=== PATIENT | female | born 1995 | race Caucasian/White ===

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

== ENCOUNTER 2017-10-30 21:02 | Emergency (ER) | payer OTHER ==
[2017-10-30 21:14] VITALS: BP 121/81; TEMP 98.7; BMI 19.3
--- NOTE | 2017-10-30 22:42 | CT ---
EXAM: CTA thorax HISTORY: Chest pain shortness of breath COMPARISON: CTA thorax 06/27/2017 FINDINGS: Contiguous axial images obtained through the thorax following the administration intraveno us contrast utilizing 3-mm collimation. Sagittal and coronal reconstructions were imaged and reviewe d.. Source images were utilized to create rotating 3-D MIP images The thoracic inlet is unremarkabl e. There is no evidence of hilar or mediastinal lymphadenopathy. The cardiac silhouette is normal i n size without pericardial effusion. There is no evidence of pulmonary embolus. The lungs are clear bilaterally . Bone windows eveals no evidence of lytic or blastic lesions. IMPRESSION: No evidence of pulmonary embolus or acute intrathoracic findings.
[2017-10-30] MEDS ORDERED: DUONEB NEB STA (22:44)
--- NOTE | 2017-10-30 22:48 | ED.PDOC ---
General ED Provider: Dr. HAYLEY BRADY-ER Chief Complaint: Shortness of Air Stated Complaint: my chest feels tight like i cant take a deep breathe Time Seen by Physician: 21:05 Mode of Arrival: Walk-In Information Source: Patient Exam Limitations: No limitations Primary Care Provider: ANNITA HINOJOSA Nursing and Triage Documentation Reviewed and Agree: Yes Reviewed sepsis parameters & appropriate labs ordered?: Yes System Inflammatory Response Syndrome: Not Applicable Sepsis Protocol: For patient's 13 years and over: Temp is 96.8 and below OR 101 and greater Pulse >90 BPM Resp >20/minute Acutely Altered Mental Status Are patient's symptoms suggestive of a new infection, such as: -Pneumonia -Skin, Soft Tissue -Endocarditis -UTI -Bone, Joint Infection -Implantable Device -Acute Abdominal Infection -Wound Infection -Meningitis -Blood Stream Catheter Infection -Unknown Respiratory Complaint Exam - Respiratory Complaint/Exam Onset/Duration: 24hrs Symptoms Are: Still present Timing: Intermittent Initial Severity: Mild Current Severity: Mild Location: Chest Character: Reports: Non-productive cough Alleviating: Reports: None. Denies: Nasal suction Associated Signs and Symptoms: Reports: Pleuritic chest pain. Denies: Rapid breathing, Dyspnea, Chills, Chest pain, Wheezing, Hemoptysis, Dizziness, Calf pain, Calf swelling, Edema Recent Stress Test: No Recent Echo/LV Function: No Current Antibiotic Use: No Current Asthma Medication Use: No Respiratory Distress: None Inadequate Respiratory Effort: No Dysphagia Present: No Stridor Present: No Accessory Muscle Use: No Retractions: Not Present Diminished Breath Sounds: No Grunting Respirations: No Kussmaul Respirations: No Differential Diagnoses: Asthma, Pneumonia, Pulmonary Embolism, Bronchitis Non-Traumatic Chest Pain Syncope: EKG Performed Review of Systems - Review Of Systems Constitutional: Reports: No symptoms Eyes: Reports: No symptoms Ears, Nose, Mouth, Throat: Reports: No symptoms Respiratory: Reports: Short of air Cardiac: Reports: Chest pain GI: Reports: No symptoms : Reports: No symptoms Musculoskeletal: Reports: No symptoms Skin: Reports: No symptoms Neurological: Reports: No symptoms Endocrine: Reports: No symptoms Hematologic/Lymphatic: Reports: No symptoms All Other Systems: Reviewed and Negative Past Medical History - Past Medical History Previously Healthy: Yes Endocrine: Reports: None Cardiovascular: Reports: None Respiratory: Reports: None Hematological: Reports: None Gastrointestinal: Reports: None Genitourinary: Reports: None Neuro/Psych: Reports: Anxiety, Depression Musculoskeletal: Reports: Other Cancer: Reports: None Last Menstrual Period: 3 weeks ago - Surgical History General Surgical History: Reports: (1 months ago ), Cholecystectomy ( Gallbladder removal 01/21/15 ) - Family History Family History: Reports: Unknown - Social History Smoking Status: Current every day smoker, Light tobacco smoker Hx Substance Use: No Alcohol Screening: None - Immunizations Tetanus Shot up to Date: Yes Physical Exam - Physical Exam Appearance: Well-appearing, No pain distress, Well-nourished Eyes: CHRISTELLE, EOMI, Conjunctiva clear ENT: Ears normal, Nose normal, Oropharynx normal Neck: Supple Respiratory: Airway patent, Breath sounds clear, Breath sounds equal, Respirations nonlabored Cardiovascular: RRR, Pulses normal, No rub, No murmur GI/: Soft, Nontender, No masses, Bowel sounds normal, No Organomegaly Musculoskeletal: Normal strength Skin: Warm Neurological: Sensation intact Psychiatric: Affect appropriate, Mood appropriate Interpretation - Radiology Interpretation Radiology Interpretation By: Radiologist Radiology Results: Negative Exam Interpreted: CT Scan - EKG Interpretation Time of EKG #1: 22:48 Rate: Normal Rhythm: Sinus Ectopy: None [place]: NL ST Segment: Normal Interpretation: normal sinus rythym Re-Evaluation - Re-Evaluation Time of Re-Evaluation: 23:02 Status: Improved Vital Signs Stable: Yes Pain Level: 0 Appearance: NAD Lungs: Clear Skin: Warm and Dry Neuro: Alert and Oriented X3 CV: RRR Critical Care Note - Critical Care Note Total Time (mins): 0 Course - Course Hematology/Chemistry: 10/30/17 21:25 10/30/17 21:25 Orders, Labs, Meds: Lab Review 10/30/17 10/30/17 10/30/17 21:17 21:25 21:25 WBC 7.87 RBC 4.61 Hgb 13.5 Hct 38.5 MCV 83.5 MCH 29.3 MCHC 35.1 RDW Coeff of Nay 13.0 Plt Count 278 Immature Gran % (Auto) 0.3 Neut % (Auto) 63.8 Lymph % (Auto) 30.2 [place] % (Auto) 4.6 Eos % (Auto) 0.5 Baso % (Auto) 0.6 Immature Gran # (Auto) 0.0 Neut # (Auto) 5.0 Lymph # (Auto) 2.4 [place] # (Auto) 0.4 Eos # (Auto) 0.0 Baso # (Auto) 0.1 Puncture Site Lr O2 Saturation 98.0 ABG pH 7.442 ABG pCO2 36.7 ABG pO2 95.0 ABG HCO3 25.1 ABG Total CO2 26 ABG Base Excess 1 Noel Test + FiO2 % 21.0 Sodium 139 Potassium 3.7 Chloride 103 Carbon Dioxide 25 Anion Gap 14.7 BUN 11 Creatinine 0.70 Estimated GFR (MDRD) 107.00 BUN/Creatinine Ratio 15.71 Glucose 109 Calcium 8.7 Total Bilirubin 0.2 AST 19 ALT 16 Alkaline Phosphatase 71 Total Protein 7.1 Albumin 4.5 Globulin 2.6 Albumin/Globulin Ratio 1.73 Serum , Qual 10/30/17 21:25 WBC RBC Hgb Hct MCV MCH MCHC RDW Coeff of Nay Plt Count Immature Gran % (Auto) Neut % (Auto) Lymph % (Auto) [place] % (Auto) Eos % (Auto) Baso % (Auto) Immature Gran # (Auto) Neut # (Auto) Lymph # (Auto) [place] # (Auto) Eos # (Auto) Baso # (Auto) Puncture Site O2 Saturation ABG pH ABG pCO2 ABG pO2 ABG HCO3 ABG Total CO2 ABG Base Excess Noel Test FiO2 % Sodium Potassium Chloride Carbon Dioxide Anion Gap BUN Creatinine Estimated GFR (MDRD) BUN/Creatinine Ratio Glucose Calcium Total Bilirubin AST ALT Alkaline Phosphatase Total Protein Albumin Globulin Albumin/Globulin Ratio Serum , Qual Negative Orders Category Date Time Status ABG DRAW REQUEST Stat CARDIO 10/30/17 21:18 Completed EKG-(ED ONLY) Stat CARDIO 10/30/17 21:18 Completed NEBULIZER TREATMENT Stat CARDIO 10/30/17 22:44 Ordered NPO REMINDER: IMAGING ONCE CARE 10/30/17 21:18 Completed ED IV/MEDIPORT/POWERPORT .ONCE EMERGENCY 10/30/17 21:18 Active ABG Stat LAB 10/30/17 21:17 Completed CBC W/ AUTO DIFF Stat LAB 10/30/17 21:25 Completed COMPREHENSIVE METABOLIC PANEL Stat LAB 10/30/17 21:25 Completed SERUM TEST [SERUM ] Stat LAB 10/30/17 21:25 Completed 0.9 % Sodium Chloride [Saline Flush] MEDS 10/30/17 21:18 Ordered 1 syr IVF PRN PRN Ipratropium/Albuterol Neb [Duoneb] MEDS 10/30/17 22:44 Discontinued 1 vial NEB ONCE STA CT CHEST PE PROTOCOL Stat RADS 10/30/17 21:18 Completed Medications Generic Name Dose Route Start Last Admin Trade Name Freq PRN Reason Stop Dose Admin Sodium Chloride 1 syr 10/30/17 21:18 Saline Flush IVF PRN PRN To flush IV Discontinued Medications Generic Name Dose Route Start Last Admin Trade Name Freq PRN Reason Stop Dose Admin Albuterol/Ipratropium 1 vial 10/30/17 22:44 Duoneb NEB 10/30/17 22:45 ONCE STA Vital Signs: Temp Pulse Resp BP Pulse Ox 10/30/17 21:03 98.7 F 108 H 20 121/81 98 Departure - Departure Time of Disposition: 23:02 Disposition: HOME SELF-CARE Discharge Problem: Bronchitis Instructions: Acute Bronchitis (ED) Condition: Good Pt referred to PMD for follow-up: Yes IPMP verified?: No Additional Instructions: proair inhaler 2 puffs qid prn--f/u with pcp Allergies/Adverse Reactions: Allergies Penicillins Adverse Reaction (Verified 10/30/17 21:10) Rash Home Medications: Ambulatory Orders 1 [No Reported Medications] 11/11/16 Disposition Discussed With: Patient, Family
== END 2017-10-30 23:10 | disposition home or self-care (01) ==
LOC: ED 21:02
DX: J20.9 Acute bronchitis, unspecified (principal); F17.210 Nicotine dependence, cigarettes, uncomplicated
CPT/HCPCS: 36415; 80053; 82803; 84703; 85025; 93005; 93010; 94640; 99283

== ENCOUNTER 2017-12-08 01:03 | Emergency (ER) ==
[2017-12-08 01:16] VITALS: BP 116/75; TEMP 98.6; BMI 19.1
[2017-12-08] MEDS ORDERED: CLEOCIN PO STA (01:22)
--- NOTE | 2017-12-08 01:25 | ED.PDOC ---
General ED Provider: Dr. MELI HILOTN Chief Complaint: Non-specific Complaint Stated Complaint: came for the right Jaw swelling, She had dental filling done 1 day ago,. today she is hurting more not able to open mouth. Time Seen by Physician: 01:23 Mode of Arrival: Walk-In Information Source: Patient Primary Care Provider: MATY SUAZO Nursing and Triage Documentation Reviewed and Agree: Yes Reviewed sepsis parameters & appropriate labs ordered?: Yes System Inflammatory Response Syndrome: Not Applicable Sepsis Protocol: For patient's 13 years and over: Temp is 96.8 and below OR 101 and greater Pulse >90 BPM Resp >20/minute Acutely Altered Mental Status Are patient's symptoms suggestive of a new infection, such as: -Pneumonia -Skin, Soft Tissue -Endocarditis -UTI -Bone, Joint Infection -Implantable Device -Acute Abdominal Infection -Wound Infection -Meningitis -Blood Stream Catheter Infection -Unknown EENT Complaint Exam - Dental/Oral Complaint/Exam Symptoms Are: Still present Timing: Constant Initial Severity: Moderate Current Severity: Moderate Character: Reports: Dull, Aching Aggravating: Reports: Chewing Alleviating: Reports: None Associated Signs and Symptoms: Reports: Swelling, Foul odor. Denies: Discharge , Fever, Foul taste in mouth Cardiac Risk Factors: Reports: None Dental/Oral Surgical History: Reports: Periodontal Surgery (tooth filling) Tooth Findings: Present: Percussion tenderness, Abcess Facial Swelling Present: Yes Bleeding Present: No Septal Hematoma: No Foreign Body Present: No Dysphagia Present: No Drooling Present: No Asymmetrical Tonsillar Swelling Present: No Uvula Midline: Yes Hanh-tonsillar Fluctuence: No Trismus Present: No Palatal Petechiae Present: No Differential Diagnoses: Dental Abcess, Dental Caries, Mandibular Trauma Review of Systems - Review Of Systems Constitutional: Reports: No symptoms Eyes: Reports: No symptoms Ears, Nose, Mouth, Throat: Reports: Mouth pain Respiratory: Reports: No symptoms Cardiac: Reports: No symptoms GI: Reports: No symptoms : Reports: No symptoms Musculoskeletal: Reports: No symptoms Skin: Reports: No symptoms Neurological: Reports: No symptoms Endocrine: Reports: No symptoms Hematologic/Lymphatic: Reports: No symptoms All Other Systems: Reviewed and Negative Past Medical History - Past Medical History Previously Healthy: Yes Endocrine: Reports: None Cardiovascular: Reports: None Respiratory: Reports: None Hematological: Reports: None Gastrointestinal: Reports: None Genitourinary: Reports: None Neuro/Psych: Reports: Anxiety, Depression Musculoskeletal: Reports: Other Cancer: Reports: None Last Menstrual Period: 1 week ago - Surgical History General Surgical History: Reports: (1 months ago ), Cholecystectomy ( Gallbladder removal 01/21/15 ) - Family History Family History: Reports: Unknown - Social History Smoking Status: Current every day smoker, Light tobacco smoker Smoking Cessation Counseling Time: > 10 min Hx Substance Use: No Alcohol Screening: None - Immunizations Tetanus Shot up to Date: Yes Physical Exam - Physical Exam Appearance: Well-appearing (rt jaw swollen), Well-nourished Pain Distress: Mild Eyes: CHRISTELLE, EOMI, Conjunctiva clear ENT: Ears normal, Nose normal, Oropharynx normal Respiratory: Airway patent, Breath sounds clear, Breath sounds equal, Respirations nonlabored Cardiovascular: RRR, Pulses normal, No rub, No murmur GI/: Soft, Nontender, No masses, Bowel sounds normal, No Organomegaly Musculoskeletal: Normal strength, ROM intact, No edema, No calf tenderness Skin: Warm, Dry, Normal color Neurological: Sensation intact, Motor intact, Reflexes intact, Cranial nerves intact, Alert, Oriented Psychiatric: Affect appropriate, Mood appropriate Critical Care Note - Critical Care Note Total Time (mins): 20 Course - Course Orders, Labs, Meds: Orders Category Date Time Status SERUM Stat LAB 12/08/17 Ordered Clindamycin HCl [Cleocin] MEDS 12/08/17 01:22 Stat 300 mg PO ONCE STA CT MAXILLOFACIAL W/O CONTRAST Stat RADS 12/08/17 01:22 Ordered Medications Discontinued Medications Generic Name Dose Route Start Last Admin Trade Name Norma PRN Reason Stop Dose Admin Clindamycin HCl 300 mg 12/08/17 01:22 Cleocin PO 12/08/17 01:23 ONCE STA Vital Signs: Temp Pulse Resp BP Pulse Ox 12/08/17 01:07 98.6 F 77 20 116/75 98 Departure - Departure Time of Disposition: 01:27 Disposition: HOME SELF-CARE Discharge Problem: Dental abscess Instructions: Dental Abscess (ED) Condition: Stable Pt referred to PMD for follow-up: Yes IPMP verified?: No Additional Instructions: Keep f/u with dentist Take antibiotics with food Prescriptions: Clindamycin HCl 300 mg PO TID #15 capsule Allergies/Adverse Reactions: Allergies Penicillins Adverse Reaction (Verified 12/08/17 01:16) Rash Home Medications: Ambulatory Orders Clindamycin HCl 300 mg PO TID #15 capsule 12/08/17 Disposition Discussed With: Patient
[2017-12-08] MEDS ORDERED: TYLENOL PO STA (02:26)
--- NOTE | 2017-12-08 02:36 | CT ---
EXAM: CT of the face and orbits without contrast. HISTORY: Right jaw pain, after the procedure. PROCEDURE: Contiguous axial CT images of the face and orbits without contrast with coronal and sagit raysa reformats. FINDINGS: The bones are intact with no evidence of fracture. The temporomandibular joints are maint ained. The orbits are normal in appearance. The paranasal sinuses are well-aerated and normal in ap pearance. There is minimal soft tissue swelling and inflammatory stranding of the subcutaneous fat a long the lateral margin of the right mandible. No discrete fluid collection. There is jewelry in the left nasal soft tissues. Impression: Minimal soft tissue swelling and inflammatory stranding of the subcutaneous fat along the lateral margin of the right mandible. Correlate with history.
== END 2017-12-08 02:50 | disposition home or self-care (01) ==
LOC: ED 01:03
DX: K04.7 Periapical abscess without sinus (principal); F17.210 Nicotine dependence, cigarettes, uncomplicated
CPT/HCPCS: 36415; 84703; 99282

== ENCOUNTER 2018-08-15 21:38 | Emergency (ER) ==
[2018-08-15 21:49] VITALS: BP 126/80; TEMP 99.2; BMI 18.7
[2018-08-15 22:03] LABS: URINE PREGNANCY TEST NEGATIVE (NEGATIVE)
[2018-08-15] MEDS ORDERED: SODIUM CHLORIDE 1,000 ML IV STA ×2 (22:13)
--- NOTE | 2018-08-15 23:27 | ED.PDOC ---
General ED Provider: Dr. HAYLEY BRADY-ER Chief Complaint: Diarrhea Stated Complaint: erick had loose stools Time Seen by Physician: 23:25 Mode of Arrival: Walk-In Information Source: Patient Exam Limitations: No limitations Primary Care Provider: MATY SUAZO Nursing and Triage Documentation Reviewed and Agree: Yes Does patient meet sepsis criteria?: No System Inflammatory Response Syndrome: Not Applicable Sepsis Protocol: For patient's 13 years and over: Temp is 96.8 and below OR 101 and greater Pulse >90 BPM Resp >20/minute Acutely Altered Mental Status Are patient's symptoms suggestive of a new infection, such as: -Pneumonia -Skin, Soft Tissue -Endocarditis -UTI -Bone, Joint Infection -Implantable Device -Acute Abdominal Infection -Wound Infection -Meningitis -Blood Stream Catheter Infection -Unknown GI Complaint Exam - Vomiting/Diarrhea Complaint/Exam Onset/Duration: a few days Symptoms Are: Still present Initial Severity: Mild Current Severity: Mild Character of Vomiting: Reports: Non-bilious Character of Diarrhea: Reports: Watery Aggravating: Reports: None Alleviating: Reports: None Associated Signs and Symptoms: Denies: Dizziness, Light-headedness, Melena, Hematemesis, Fever, Abdominal pain, Cramping Recent Positive Test: No Use of Oral Contraceptives: No Use of Depoprovera: No Compliant With Contraceptive Use: No Non-GI Risk Factors: Reports: None Surgical Obstruction Risk Factors: Reports: None Related Surgical History: Reports: None Abdominal Findings: Present: None Kussmaul Respirations Present: No Differential Diagnoses: Dehydration, Viral Gastroenteritis Review of Systems - Review Of Systems Constitutional: Reports: No symptoms Eyes: Reports: No symptoms Ears, Nose, Mouth, Throat: Reports: No symptoms Respiratory: Reports: No symptoms Cardiac: Reports: No symptoms GI: Reports: Diarrhea : Reports: No symptoms Musculoskeletal: Reports: No symptoms Skin: Reports: No symptoms Neurological: Reports: No symptoms Endocrine: Reports: No symptoms Hematologic/Lymphatic: Reports: No symptoms All Other Systems: Reviewed and Negative Past Medical History - Past Medical History Previously Healthy: Yes Endocrine: Reports: None Cardiovascular: Reports: None Respiratory: Reports: None Hematological: Reports: None Gastrointestinal: Reports: None Genitourinary: Reports: None Neuro/Psych: Reports: Anxiety, Depression Musculoskeletal: Reports: Other Cancer: Reports: None Last Menstrual Period: unknown - Surgical History General Surgical History: Reports: (1 months ago ), Cholecystectomy ( Gallbladder removal 01/21/15 ) - Family History Family History: Reports: Unknown - Social History Smoking Status: Current every day smoker, Light tobacco smoker Hx Substance Use: No Alcohol Screening: None - Immunizations Tetanus Shot up to Date: Yes Physical Exam - Physical Exam Appearance: Well-appearing, No pain distress, Well-nourished Eyes: CHRISTELLE, EOMI, Conjunctiva clear ENT: Ears normal, Nose normal, Oropharynx normal Neck: Supple Respiratory: Airway patent, Breath sounds clear, Breath sounds equal, Respirations nonlabored Cardiovascular: RRR, Pulses normal, No rub, No murmur GI/: Soft Musculoskeletal: Normal strength, ROM intact, No edema, No calf tenderness Skin: Warm, Dry, Normal color Neurological: Sensation intact, Motor intact, Reflexes intact, Cranial nerves intact, Alert, Oriented Psychiatric: Affect appropriate, Mood appropriate Critical Care Note - Critical Care Note Total Time (mins): 0 Course - Course Hematology/Chemistry: 08/15/18 22:22 08/15/18 22:22 Orders, Labs, Meds: Lab Review 08/15/18 08/15/18 08/15/18 21:59 21:59 22:22 WBC 6.02 RBC 4.46 Hgb 12.9 Hct 37.8 MCV 84.8 MCH 28.9 MCHC 34.1 RDW Coeff of Nay 12.3 Plt Count 281 Immature Gran % (Auto) 0.2 Neut % (Auto) 53.0 Lymph % (Auto) 39.0 Esmeralda % (Auto) 5.8 Eos % (Auto) 1.3 Baso % (Auto) 0.7 Immature Gran # (Auto) 0.0 Neut # (Auto) 3.2 Lymph # (Auto) 2.4 Esmeralda # (Auto) 0.4 Eos # (Auto) 0.1 Baso # (Auto) 0.0 Sodium Potassium Chloride Carbon Dioxide Anion Gap BUN Creatinine Estimated GFR (MDRD) BUN/Creatinine Ratio Glucose Calcium Total Bilirubin AST ALT Alkaline Phosphatase Total Protein Albumin Globulin Albumin/Globulin Ratio Amylase Lipase Urine Color Yellow Urine Clarity Clear Urine pH 7.5 Ur Specific [place] 1.010 Urine Protein Negative Urine Glucose (UA) Negative Urine Ketones Negative Urine Blood Negative Urine Nitrite Negative Urine Bilirubin Negative Urine Urobilinogen 0.2 Ur Leukocyte Esterase Trace Urine Microscopic WBC 0-2 Ur Squamous Epith Cells 5-10 Urine Test Negative Influ A Molecular Assay Influ B Molecular Assay 08/15/18 08/15/18 22:22 22:26 WBC RBC Hgb Hct MCV MCH MCHC RDW Coeff of Nay Plt Count Immature Gran % (Auto) Neut % (Auto) Lymph % (Auto) Esmeralda % (Auto) Eos % (Auto) Baso % (Auto) Immature Gran # (Auto) Neut # (Auto) Lymph # (Auto) Esmeralda # (Auto) Eos # (Auto) Baso # (Auto) Sodium 141.9 Potassium 4.28 Chloride 102.6 Carbon Dioxide 28.2 Anion Gap 15.38 BUN 7.6 Creatinine 0.70 Estimated GFR (MDRD) 106.00 BUN/Creatinine Ratio 10.85 Glucose 100.9 Calcium 9.64 Total Bilirubin 0.20 AST 27.7 ALT 15.9 Alkaline Phosphatase 51.6 Total Protein 7.47 Albumin 4.70 Globulin 2.77 Albumin/Globulin Ratio 1.69 Amylase 57.7 Lipase 125.3 Urine Color Urine Clarity Urine pH Ur Specific [place] Urine Protein Urine Glucose (UA) Urine Ketones Urine Blood Urine Nitrite Urine Bilirubin Urine Urobilinogen Ur Leukocyte Esterase Urine Microscopic WBC Ur Squamous Epith Cells Urine Test Influ A Molecular Assay Negative by naat Influ B Molecular Assay Negative by naat Orders Category Date Time Status ED IV/MEDIPORT/POWERPORT .ONCE EMERGENCY 08/15/18 22:13 Active AMYLASE Stat LAB 08/15/18 22:22 Completed CBC W/ AUTO DIFF Stat LAB 08/15/18 22:22 Completed COMPREHENSIVE METABOLIC PANEL Stat LAB 08/15/18 22:22 Completed FLU A/B MOLECULAR Stat LAB 08/15/18 22:26 Completed LIPASE Stat LAB 08/15/18 22:22 Completed MOLECULAR GROUP A STREP Stat LAB 08/15/18 22:26 Completed URINALYSIS C & S IF INDICATED Stat LAB 08/15/18 21:59 Completed URINE Stat LAB 08/15/18 21:59 Completed 0.9 % Sodium Chloride [Saline Flush] MEDS 08/15/18 22:13 Ordered 1 syr IVF PRN PRN Sodium Chloride 0.9% [Sodium Chloride] 1,000 ml MEDS 08/15/18 22:13 Discontinued IV BOLUS Sodium Chloride 0.9% [Sodium Chloride] 1,000 ml MEDS 08/15/18 22:13 Discontinued IV BOLUS Medications Generic Name Dose Route Start Last Admin Trade Name Freq PRN Reason Stop Dose Admin Sodium Chloride 1 syr 08/15/18 22:13 08/15/18 22:26 Saline Flush IVF 1 syr PRN PRN Administration To flush IV Discontinued Medications Generic Name Dose Route Start Last Admin Trade Name Norma PRN Reason Stop Dose Admin Sodium Chloride 1,000 mls @ 1,000 mls/hr 08/15/18 22:13 08/15/18 22:25 Sodium Chloride IV 08/15/18 23:12 1,000 mls/hr BOLUS STA Administration Sodium Chloride 1,000 mls @ 1,000 mls/hr 08/15/18 22:13 08/15/18 22:26 Sodium Chloride IV 08/15/18 23:12 1,000 mls/hr BOLUS STA Administration Vital Signs: Temp Pulse Resp BP Pulse Ox 08/15/18 21:41 99.2 F 109 H 20 126/80 99 Departure - Departure Time of Disposition: 23:26 Disposition: HOME SELF-CARE Discharge Problem: Diarrhea Instructions: Acute Diarrhea (ED) Condition: Good Pt referred to PMD for follow-up: Yes IPMP verified?: No Additional Instructions: avoid diary products---keep hydrated---f/u with pcp Allergies/Adverse Reactions: Allergies Penicillins Adverse Reaction (Verified 08/15/18 21:48) Rash Home Medications: Ambulatory Orders Clonazepam [Klonopin] 0.25 mg PO DAILY 08/15/18 Disposition Discussed With: Patient
== END 2018-08-16 00:45 | disposition home or self-care (01) ==
LOC: ED 21:38
DX: R19.7 Diarrhea, unspecified (principal)
CPT/HCPCS: 36415; 80053; 81001; 81025; 82150; 83690; 85025; 87502; 87651; 96360; 96361; 99283